=== PATIENT | male | born 2005 | race Asian ===

== ENCOUNTER 2024-08-29 14:23 | Outpatient (REF) | payer OTHER, SELFPAY ==
[2024-08-29 15:39] LABS: Influenza A PCR POSITIVE (Negative); Influenza B PCR NEGATIVE (Negative); Resp Syncy Virus RNA Qual PCR NEGATIVE (Negative); SARS COV2 PCR INHOUSE NEGATIVE (Negative)
--- OUTSIDE RECORDS SUMMARY | 2024-08-29 16:41 | XMS_ITS | Patient Health Record ---
Author Organization [facility] Address [address] [place] [id number] Care Team Providers Care Legal Advisor Name Role Phone Stephanie De Jesus Primary Care Provider Walter Cochran [phone] ALLERGIES No Known Allergies REASON FOR REFERRAL No Information MEDICATIONS Medication SIG (Take, Route, Fr equency, Duration) Notes Start Date End Date Status Dicyclomine HCl 10 MG 1 or 2 capsules Or ally Q 6 hours prn abdominal discomfort/cramps for 30 day(s) 01/07/2022 Active IMMUNIZATIONS Vaccine Route Administration Date Status Comme nts Influenza Unknown 01/07/2022 Refused SOCIAL HISTORY Tobacco Use: Social History Observation Description Date Details (start date - stop date) Never Smoker NA - NA Sex Assigned At : Social History Observation Description Sex Assigned At Unknown Tobacco Use/Smoking Question Answer Notes Patient is a nonsmoker Alcohol Screen Question Answer Notes Did you have a drink containing alcohol in the p ast year? No Points 0 Interpretation Negative PROBLEMS Problem Type ICD Code Onset Dates Problem Status W/U Status Risk SNOMED Code Notes Problem Change in bowel habits (R19.4) Active confirmed Change in bow el habit (93200035) Problem Rectal bleed (K62.5) Active confirmed Hemorrhage of rectum and anus (673044883) Problem Abdominal pain, generalized (R10.84) Active confirmed Generalized abdominal pain (390461066) PLAN OF TREATMENT Pending Test Test Name Order Date LIVER PROFILE 01/07/2022 CRP 01/07/2022 CBC w DIFF 01/07/2022 SED RATE (ESR) 01/07/2022 CELIAC PANEL #10 01/07/2022 Future Test Test Name Order Date COLONOSCOPY 01/07/2022 Insurance Providers Payer Name Payer Address Payer Phone Subscriber Number Group Number Insured Name Patient Relationship to Insured Coverage Start Date Coverage End Date (NEEDS REFERRA L) [address] [place] [id number] SANTOS Self - patient is the insured MEDICAL (GENERAL) HISTORY Medical History History ICD Code Denies DC,DM,CVA,Lung disease,renal dise ase Surgical History Surgery Date(Month/Year)
== END 2024-08-29 14:24 | disposition home or self-care (01) ==
LOC: HO.LAB 14:23
PROVIDERS: PCP Internal Medicine; Visit Provider Internal Medicine
DX: J02.9 Acute pharyngitis, unspecified (principal); M79.18 Myalgia, other site; R50.9 Fever, unspecified
CPT/HCPCS: 0241U